=== PATIENT | female | born 1970 | race Caucasian/White ===

== ENCOUNTER → 2017-09-11 | Outpatient (CLI) | payer OTHER | LOC: FIMAGING 09:20 | PROVIDERS: ATTEND Obstetrics & Gynecology | DX: Z12.31 Encounter for screening mammogram for malignant neoplasm of breast (principal) ==

== ENCOUNTER → 2017-09-18 | Outpatient (CLI) | payer OTHER | LOC: FIMAGING 11:21 | PROVIDERS: ATTEND Obstetrics & Gynecology | DX: Z71.89 Other specified counseling (principal) ==

== ENCOUNTER → 2017-09-24 | Outpatient (CLI) | payer OTHER | LOC: FIMAGING 07:44 | PROVIDERS: ATTEND Family Medicine | DX: Z01.818 Encounter for other preprocedural examination (principal) ==

== ENCOUNTER 2018-02-14 11:01 | Emergency (ER) | payer OTHER ==
[2018-02-14 11:10] VITALS: BP 129/89
--- NOTE | 2018-02-14 11:41 | EDPHY ---
H & P Time Seen by Provider: 02/14/18 11:14 HPI/ROS: CHIEF COMPLAINT: Sore throat, cough, sinus congestion x1 week, HISTORY OF PRESENT ILLNESS: 47-year-old female currently 5 weeks complaining of 1 week of sore throat, nonproductive cough, sinus pressure and congestion, intermittent epistaxis on left side. Seen by her PCP yesterday, had negative strep testing. She is up-to-date with influenza testing. She come to the ER today concerned because of recurrent epistaxis for the past 2 nights. Epistaxis is on the left side and the patient describes no direct pressure when epistaxis starts. No dizziness. No lightheadedness. No unusual bruising or bleeding. No gingival bleeding. No vaginal bleeding. No urinary abnormality. PRIMARY CARE PROVIDER: REVIEW OF SYSTEMS: 10 systems reviewed and negative with the exception of the elements mentioned in the history of present illness PAST MEDICAL & SURGICAL HISTORY: currently 5 weeks . SOCIAL HISTORY: Nonsmoker PHYSICAL EXAM (Prior to examination, patient consented to physical exam, hands were washed and my usual and customary physical exam procedures followed) 1) GENERAL: Well-developed, well-nourished, alert and oriented. Appears to be in no acute distress. 2) HEAD: Normocephalic, atraumatic 3) HEENT: Pupils equal, round, reactive to light bilaterally. Sclera anicteric. Nasopharynx, oropharynx, clear, no lesions. Moist Mucous membranes. No areas of active bleeding or visible areas of friability. No tonsillar enlargement or exudate. Tender to percussion left maxillary sinus. Ears bilaterally with normal tympanic membranes. No evidence of otitis media otitis externa. 4) NECK: Full range of motion, no meningeal signs. 5) LUNGS: Clear auscultation bilaterally, no wheezes, no rhonchi, no retractions. 6) HEART: Regular rate and rhythm, no murmur, no heave, no gallop. 7) ABDOMEN: No guarding, no rebound, no focal tenderness, negative McBurney's, negative Buitrago's, negative Rovsing's, negative peritoneal sign, 8) MUSCULOSKELETAL: Moving all extremities, no focal areas of tenderness, no obvious trauma. No peripheral edema or discoloration. 9) BACK: No CVA tenderness, no midline vertebral tenderness, no fluctuance, no step-off, no obvious trauma, no visual or palpable abnormality. 10) SKIN: No rash, no petechiae. 11) Psychiatric: Patient is oriented X 3, there is no agitation. DIFFERENTIAL DIAGNOSIS: In no particular order including but limited to anterior epistaxis, posterior epistaxis, sinusitis Smoking Status: Never smoked Constitutional: Initial Vital Signs Temperature (C) 36.7 C 02/14/18 11:07 Heart Rate 101 H 02/14/18 11:07 Respiratory Rate 16 02/14/18 11:07 Blood Pressure 129/89 H 02/14/18 11:07 O2 Sat (%) 97 02/14/18 11:07 O2 Delivery Mode Room Air Allergies/Adverse Reactions: No Known Allergies Allergy (Verified 02/14/18 11:05) Home Medications: Medication Instructions Recorded Azithromycin [Zithromax] 500 mg PO DAILY #1 tablet 02/14/18 Estrogens, Conjugated 02/14/18 Metformin 1000 mg 02/14/18 Progesterone 02/14/18 MDM/Departure - MDM ED Course/Re-evaluation: Regarding the patient's episodes of epistaxis, I think this is more likely related to irritation in the presence of acute sinusitis like symptoms. Think that initiation of antibiotic therapy is appropriate at this time. I do not identify indication for chemical cauterization, diagnostic studies at this time. I have instructed on how to place direct pressure on her epistaxis should return given her nasal clips. She feels comfortable being discharged. All questions concerns addressed by myself. Care of patient under supervision of primary supervising physician Dr Kwan . - Depart Disposition: Home, Routine, Self-Care Clinical Impression: Sinus infection Condition: Good Instructions: Sinusitis (ED) Additional Instructions: Return to the emergency department immediately for change in breathing habits, change in voice, change in swallowing habits, change in mental status, or any other symptoms that concern you. If you develop further episodes of nosebleed, place direct pressure for 20 minutes. If the bleeding continues, seek medical attention. Do not blow your nose, do not pick your nose, avoid bearing down. Prescriptions: Azithromycin [Zithromax] 500 mg PO DAILY #1 tablet Referrals: Marbella Pena MD [Primary Care Provider] - 5-7 days, call for appt.
== END 2018-02-14 11:50 | disposition home or self-care (01) ==
DX: J32.9 Chronic sinusitis, unspecified (principal); R04.0 Epistaxis; Z3A.01 Less than 8 weeks gestation of pregnancy

== ENCOUNTER 2018-04-05 19:31 | Emergency (ER) | payer OTHER ==
--- NOTE | 2018-04-05 20:23 | EDPHY ---
H & P Stated Complaint: HEAVY VAG BLEEDING,CLOTS, ABD PAIN, CRAMPING Time Seen by Provider: 04/05/18 19:56 HPI/ROS: CHIEF COMPLAINT: Pelvic cramping HISTORY OF PRESENT ILLNESS: 47-year-old female 12 weeks presents with pelvic cramping and vaginal bleeding. She underwent in vitro fertilization. Onset of vaginal spotting 3 weeks ago. Ultrasound revealed an a subchorionic hemorrhage. Yesterday she passed a large blood clot. Onset of pelvic cramping today. The pelvic cramping was severe and frequent, like labor pain. She called her jewelry drilling machine operator, who advised Tylenol 1 g orally and a heating pad to the lower abdomen. The pelvic cramping has subsided somewhat. Continues to have intermittent vaginal bleeding, no bleeding currently. 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[employer] - Social History Smoking Status: Never smoked Additional Social History: - Physical Exam Exam: General Appearance: Alert, pleasant Eyes: Pupils equal and round, no conjunctival pallor ENT, Mouth: Mucous membranes moist Neck: Normal inspection Respiratory: Lungs are clear to auscultation Cardiovascular: Regular rate and rhythm Gastrointestinal: Abdomen is soft, diffuse lower abdominal tenderness Neurological: A&O, nonfocal, normal gait Skin: Warm and dry Extremities: Normal inspection Psychiatric: Mood and affect normal Constitutional: Initial Vital Signs Temperature (C) 37.1 C 04/05/18 19:32 Heart Rate 76 04/05/18 19:32 Respiratory Rate 18 04/05/18 19:32 Blood Pressure 134/68 H 04/05/18 19:32 O2 Sat (%) 95 04/05/18 19:32 O2 Delivery Mode Room Air Allergies/Adverse Reactions: No Known Allergies Allergy (Verified 04/05/18 19:39) Home Medications: Medication Instructions Recorded Metformin 1000 mg 02/14/18 Medical Decision Making - Diagnostics Imaging Results: Obstetrics Ultrasound 04/05/18 19:57 Impression: 1. Suspect miscarriage in progress. 2. No evidence of ectopic . Findings discussed with Emergency Department physician, Ladonna Mei on 2018, 21:34. Imaging: Discussed imaging studies w/ score caller Radiologist ED Course/Re-evaluation: Ultrasound reveals an impending miscarriage. There is tissue in the lower cervical canal and no heartbeat. Dr. Parikh consulted. After consultation, the patient passed a fetus and placenta. The cramping resolved after passing the products of conception. Bleeding has subsided. Pelvic exam performed by me after the miscarriage reveals no tissue in the vaginal vault or in the external cervical os, no active bleeding. d/w Dr. Parikh, will f/u with pt in am. Plan for repeat sono in am. Differential Diagnosis: includes though not limited to ectopic , ovarian cyst, ovarian torsion. - Data Points Laboratory Results: Laboratory Results 04/05/18 20:55 Medications Given: Discontinued Medications Hydrocodone Bitart/Acetaminophen ([place]ell 5/325mg Prepack#6) 1 btl TAKEHOME EDNOW ONE Stop: 04/05/18 22:55 Last Admin: 04/05/18 23:19 Dose: 1 btl Sodium Chloride (Ns) 1,000 mls @ 0 mls/hr IV ONCE ONE; Wide Open PRN Reason: Protocol Stop: 04/05/18 20:39 Last Admin: 04/05/18 21:14 Dose: 1,000 mls Ketorolac Tromethamine (Toradol) 30 mg IVP EDNOW ONE Stop: 04/05/18 21:58 Last Admin: 04/05/18 22:30 Dose: Not Given Departure - Departure Disposition: Home, Routine, Self-Care Clinical Impression: Complete miscarriage Condition: Good Instructions: Hydrocodone (By mouth), Miscarriage (ED) Additional Instructions: Ibuprofen 600 mg 3 times daily while the pain persists. Hydrocodone 1 tablet every 4 hr as needed for pain. Referrals: Katherine Cr MD [Primary Care Provider] - As per Instructions Kirsten Parikh DO [Doctor of Osteopathy] - As per Instructions (Call Dr. Parikh 's often in the morning to make an appointment to be seen tomorrow. Dr. Parikh is planning to do a repeat ultrasound tomorrow.)
[2018-04-05] MEDS ORDERED: NS 1,000 ML IV ONE (20:38)
[2018-04-05 21:14] LABS: PLATELET COUNT 278 10^3/uL (150-400)
[2018-04-05] MEDS ORDERED: KETOROLAC 15 MG/1 ML SDV IVP ONE (21:57)
[2018-04-05] MEDS ORDERED: HYDROCOD/APAP 5/325 PREPACK#6 BTL TAKEHOME ONE (22:54)
[2018-04-05 23:28] VITALS: BP 117/63
== END 2018-04-05 23:29 | disposition home or self-care (01) ==
DX: R25.2 Cramp and spasm (principal); O03.4 Incomplete spontaneous abortion without complication; E86.9 Volume depletion, unspecified
CPT/HCPCS: J1885

== ENCOUNTER → 2018-04-12 | Outpatient (CLI) | payer OTHER | LOC: FIMAGING 15:07 | PROVIDERS: ATTEND Obstetrics & Gynecology | DX: O03.9 Complete or unspecified spontaneous abortion without complication (principal) ==